=== PATIENT | male | born 1945 | race Caucasian/White ===

== ENCOUNTER → 2018-12-06 | Outpatient (CLI) | payer MEDICARE ==
[2018-12-06 13:01] LABS: ANION GAP 6 mmol/L (5-15); CALCIUM 8.8 mg/dL (8.5-10.1); CHLORIDE 106 mmol/L (98-107)
[2018-12-06 13:06] LABS: ALANINE AMINOTRANSFERASE 34 U/L (12-78); ALKALINE PHOSPHATASE 72 U/L (45-117); BILIRUBIN,TOTAL 1.2 mg/dL (0.2-1.0); CHOL/HDL RATIO 2.4; CHOLESTEROL, TOTAL 132 mg/dL (140-239); CREATININE 1.34 mg/dL (0.7-1.3); HDL CHOL % 42 % (26-37); HDL CHOLESTEROL (DIRECT) 56 mg/dL (40-60); LDL CHOLESTEROL,CALCULATED 52 mg/dL (54-169); LDL/HDL RATIO 0.9 (0.5-3.0); TOTAL PROTEIN 7.1 g/dL (6.4-8.2); TRIGLYCERIDES 120 mg/dL (50-200); VLDL CHOLESTEROL 24 mg/dL (0-25)
== END | disposition home or self-care (01) ==
LOC: CFH 08:51
PROVIDERS: ATTEND Internal Medicine Cardiovascular Disease
DX: I08.8 Other rheumatic multiple valve diseases (principal); I10 Essential (primary) hypertension; E78.5 Hyperlipidemia, unspecified
CPT/HCPCS: 36415; 80053; 80061; 93306

== ENCOUNTER 2021-01-24 12:11 | Inpatient (IN) | payer MEDICARE ==
[~2021-01-24] VITALS: Ht 180.3 cm; Wt 81.9 kg
--- NOTE | 2021-01-24 12:30 | NUR ---
transportation logistics internship note: oxygen applied at 2Lmin in triage, spo2 increased >90%. pt in wheelchair. resp effort even and unlabored. pt to lobby per discharge planner.
--- NOTE | 2021-01-24 13:35 | NUR ---
PT TO ROOM 16 FROM TRIAGE.
[2021-01-24] MEDS ORDERED: AZITHROMYCIN 500 MG in SODIUM CHLORIDE 0.9% 250 ML IV ONE (14:00)
[2021-01-24] MEDS ORDERED: CEFTRIAXONE 1,000 MG in DEXTROSE 5% 50 ML IVPB ONE (14:00)
[2021-01-24 14:53] LABS: MEAN CORPUSCULAR HEMOGLOBIN 31.3 pg (27.5-34.5); MEAN CORPUSCULAR HGB CONC 34.9 g/dL (33.2-36.2); MEAN PLATELET VOLUME 7.4 fL (7.4-10.4); PLATELET COUNT 227 x10^3/uL (130-400); RED BLOOD COUNT 4.31 x10^6/uL (4.38-5.82); RED CELL DISTRIBUTION WIDTH 13.6 % (9.4-14.8)
[2021-01-24 14:54] LABS: ALBUMIN 2.8 g/dL (3.4-5.0); CALCIUM 8.9 mg/dL (8.5-10.1); CHLORIDE 105 mmol/L (98-107)
[2021-01-24 15:06] LABS: ALANINE AMINOTRANSFERASE 30 U/L (12-78); ALKALINE PHOSPHATASE 61 U/L (45-117); ANION GAP 7 mmol/L (5-15); BILIRUBIN,TOTAL 1.1 mg/dL (0.2-1.0); CREATININE 1.25 mg/dL (0.7-1.3); TOTAL PROTEIN 6.9 g/dL (6.4-8.2)
[2021-01-24 15:33] LABS: BAND#(MANUAL) 0.47 x10^3/uL; BANDS%(MANUAL) 6 % (0-7); EOS#(MANUAL) 0.23 x10^3/uL (0.0-0.4); EOS% (MANUAL) 3 % (1-7); LYMPH#(MANUAL) 1.09 x10^3/uL (1-3.4); LYMPHS% (MANUAL) 14 % (22-44); METAMYELOCYTES# (MANUAL) 0.16 x10^3/uL (0-0); METAMYELOCYTES% (MANUAL) 2 % (0-1); MONOS#(MANUAL) 0.55 x10^3/uL (0.3-2.7); MONOS% (MANUAL) 7 % (2-9); MYELOCYTES# (MANUAL) 0.08 x10^3/uL (0-0); MYELOCYTES% (MANUAL) 1 % (0-0); SEG#(MANUAL) 5.23 x10^3/uL (1.8-6.8); SEGS% (MANUAL) 67 % (42-75)
[2021-01-24 15:34] LABS: <PLATELET ESTIMATE> ADEQUATE; <PLT MORPHOLOGY> NORMAL PLT MORPH; <RBC MORPHOLOGY> NORMAL
--- NOTE | 2021-01-24 15:47 | NUR ---
REPORT GIVEN TO DAMEON BOOTHE PT AWAITING TRANSPORT TO MEDICAL FLOOR AT THIS TIME.
[2021-01-24] MEDS ORDERED: AMLODIPINE PO (16:01)
[2021-01-24] MEDS ORDERED: CARV6.252 PO (16:01)
[2021-01-24] MEDS ORDERED: ASPI-963 PO (16:01)
[2021-01-24] MEDS ORDERED: TORS5TAB4 PO (16:01)
[2021-01-24] MEDS ORDERED: POTA10CA PO (16:01)
[2021-01-24] MEDS ORDERED: LOSA100T14 PO (16:01)
[2021-01-24] MEDS ORDERED: VITAMIN D3 PO (16:01)
[2021-01-24] MEDS ORDERED: ATORVASTATIN PO (16:01)
--- NOTE | 2021-01-24 16:30 | NUR ---
med rec completed. pt a&o, resps even and unlabored, nadn at this time. pt denies pain. awaiting transport at this time.
[2021-01-24 16:44] LABS: C-REACTIVE PROTEIN, QUANT 7.2 mg/dL (0.02-0.49)
[2021-01-24] MEDS: DEXAMETHASONE 4 MG/ML, 1ML IVPush SCH (17:57)
[2021-01-24] MEDS: ASCORBIC ACID 500 MG TABLET PO SCH (17:57)
[2021-01-24 18:00] VITALS: BP 167/70
[2021-01-24 19:45] VITALS: BP 155/54
[2021-01-24] MEDS ORDERED: ONDANSETRON 2MG/ML, 2ML IVPush PRN (20:00)
[2021-01-24] MEDS ORDERED: TRAZODONE 50MG TABLET PO PRN (20:00)
[2021-01-24] MEDS ORDERED: ENOXAPARIN 40 MG/0.4 ML SQ SCH (20:00)
[2021-01-24] MEDS ORDERED: MELATONIN 5 MG TABLET PO PRN (20:00)
[2021-01-24] MEDS ORDERED: ACETAMINOPHEN 325 MG TABLET PO PRN (20:00)
[2021-01-24] MEDS: GUAIFENESIN ER 600 MG TABLET PO SCH (21:35)
[2021-01-24] MEDS ORDERED: TRAZODONE 50MG TABLET PO ONE (22:30)
[2021-01-24] MEDS ORDERED: OMNIPAQUE 350 MG/ML, 100ML BOTTLE ONE (22:31)
[2021-01-25 02:20] VITALS: BP 140/60
[2021-01-25 07:42] VITALS: BP 140/47
[2021-01-25] MEDS ORDERED: ZINC SULFATE 220 MG CAPSULE PO SCH (09:00)
[2021-01-25] MEDS ORDERED: CHOLECALCIFEROL 5,000u TAB PO SCH (09:00)
[2021-01-25] MEDS: DEXAMETHASONE 4 MG/ML, 1ML IVPush SCH (09:25)
[2021-01-25] MEDS: ASCORBIC ACID 500 MG TABLET PO SCH (09:26)
[2021-01-25] MEDS: GUAIFENESIN ER 600 MG TABLET PO SCH (09:26)
[2021-01-25] MEDS ORDERED: ASCO500T9 PO (14:51)
[2021-01-25] MEDS ORDERED: ZINC220C8 PO (14:51)
[2021-01-25] MEDS ORDERED: PRED20TA PO (14:51)
[2021-01-25] MEDS ORDERED: TRAZODONE 100MG TABLET PO PRN (21:00)
== END 2021-01-25 16:14 | disposition home or self-care (01) | DRG 177 ==
LOC: ED 13:45 → EDIP 15:15 → 3N 16:54
PROVIDERS: ADMIT Internal Medicine; ATTEND Internal Medicine
DX: U07.1 COVID-19 (principal); J12.82 Pneumonia due to coronavirus disease 2019; J96.01 Acute respiratory failure with hypoxia; G93.40 Encephalopathy, unspecified; I35.9 Nonrheumatic aortic valve disorder, unspecified; I10 Essential (primary) hypertension; Z79.899 Other long term (current) drug therapy
CPT/HCPCS: 36415; 71045; 71275; 80053; 83605; 83615; 84145; 85025; 85379; 86140; 87040; 93005; 96374; G0378; J0696; J1100; Q9967